=== PATIENT | male | born 1960 | race Asian ===

== ENCOUNTER 2020-08-31 14:41 | Emergency (ER) | payer MEDICARE, MEDICAID ==
[~2020-08-31] VITALS: Ht 170.2 cm; Wt 72.7 kg
[~2020-08-31 14:41] MED LIST: CLIN-26 PO; IBUP-1985 PO
[2020-08-31 14:46] VITALS: BP 147/98
[2020-08-31] MEDS ORDERED: proparacaine 0.5% ophthalmic drops 15ml RIGHTEYE ONE (15:10)
[2020-08-31] MEDS ORDERED: TETanus/Pertussis (Acell)/Diphther VAC/PF (Tdap-Adult) 0.5ml syringe IMVAC ONE (15:10)
--- NOTE | 2020-08-31 16:15 | NUR ---
TECH ASKED TO DO VISUAL ACUITY
--- NOTE | 2020-08-31 16:29 | NUR ---
rodo guthrie at bedside and able to see a foreign object in his right eye and removed a black eliot with a q tip
--- NOTE | 2020-08-31 16:46 | NUR ---
WHILE WAITING FOR VIRAMONTES LAMP AND FLUOROSCEIN TO BE BROUGHT TO ME, PATIENT DISCUSSED HIS DESIRE TO LEAVE HIS EYE FEELS BETTER. I WENT TO GET THE VIRAMONTES LAMP AND FLOUROSCEIN, THE PATIENT LEFT. THE TECH WAS TALKING TO THE PATIENT ACROSS THE MARTINS.
== END 2020-08-31 16:50 | disposition left against medical advice (07) ==
LOC: ER 14:42
DX: T15.91XA Foreign body on external eye, part unspecified, right eye, initial encounter (principal); M10.9 Gout, unspecified; Z86.2 Personal history of diseases of the blood and blood-forming organs and certain disorders involving the immune mechanism; Z20.3 Contact with and (suspected) exposure to rabies; Z88.1 Allergy status to other antibiotic agents; X58.XXXA Exposure to other specified factors, initial encounter; Y93.89 Activity, other specified; Y92.89 Other specified places as the place of occurrence of the external cause; Y99.8 Other external cause status
CPT/HCPCS: 90471; 99284